=== PATIENT | female | born 1970 | race Caucasian/White ===

== ENCOUNTER 2018-01-26 14:22 | Inpatient (IN) | payer OTHER ==
[~2018-01-26] VITALS: Ht 154.9 cm; Wt 86.7 kg
--- NOTE | ~2018-01-26 | OP ---
[address] [address] OPERATIVE REPORT Name: JAMAICA WITT Room: [address] [place] .R.#: [id number] Admission: 01/26/18 Attend Phys: Nic Pierre MD Discharge: Date of : 74 Report #: [id number] THIS REPORT FOR: //name// CC: Nic Gatica DATE OF SERVICE: 01/27/2018 SURGEON: Tye Brown MD PREOPERATIVE DIAGNOSIS: Right ureteral stone and right kidney stone. POSTOPERATIVE DIAGNOSIS: Right ureteral stone and right kidney stone. PROCEDURE: Panendoscopy and cystoscopy, right retrograde pyelogram, laser ureteroscopy of distal right ureteral stone and flexible ureteroscopy with laser of kidney stone and double-J stent placement. COMPLICATIONS: No complications. INDICATIONS: This is a white female with history of severe pain. She has a 6 mm distal right ureteral stone. Also, has a 6 mm upper kidney stone. She understands risks of bleeding, infection and other procedures, cardiovascular and pulmonary complications and wished to proceed. DESCRIPTION OF PROCEDURE: Informed consent was obtained. The patient was sterilely prepped and draped in dorsal lithotomy position and given preoperative antibiotics, cystoscopy was carried out. No abnormalities seen in the bladder. Retrograde pyelogram showed filling defect in distal ureter. Sensor wire was used as a safety wire. Ureteroscopy was carried out with the rigid ureteroscope. Stone was seen broken with a laser and all the pieces were extracted. Next, a ZIPwire was placed as a safety wire. Ureteral access sheath was placed up easily 11 x 13 ureteral access sheath up to just below the UPJ. I was able to get the flexible ureteroscope up into the upper pole of the kidney. Kidney stone was seen broken into multiple small pieces and the vast majority were all taken out using a 0 tip nitinol basket. There were still some dust-like particles left up in the kidney. A 4.8 x 26 stent was then placed showing good curl in the kidney and good curl in the bladder. Plan will be for the patient to follow up with Dr. Brown in 1 week and the stent will be removed in the office. By: [id number] Brown MD /darek
[~2018-01-26 14:22] MED LIST: ADDERALL; ADDERALL 10 MG10 MG PO; AMBIEN; CELEXA; CELEXA10 MG PO; CLEOCIN HCL150 MG PO; DEPAKOTE; HYDROCODONE-AP1 EAC6 PO; KEFLEX500 MG PO; LAMICTAL; LAMICTAL100 MG PO; LISINOPRIL20 MG; PROZAC 20 MG20 M1; TRAZODONE HCL100 MG PO
[2018-01-26 14:42] VITALS: BP 139/73
[2018-01-26] MEDS ORDERED: RIZATRIPTAN10 MG PO (14:46)
[2018-01-26 15:27] LABS: ABSOLUTE BASOPHILS 0.1 thou/uL (0.0-0.2); ABSOLUTE EOSINOPHILS 0.4 thou/uL (0.0-0.7); ABSOLUTE LYMPHOCYTES 3.2 thou/uL (0.8-5.3); ABSOLUTE MONOCYTES 0.7 thou/uL (0.0-1.2); ABSOLUTE NEUTROPHILS 8.2 thou/uL (1.6-8.1); EOSINOPHILS 2.8 %; HEMATOCRIT 39.8 % (37.0-47.0); LYMPHOCYTES 25.2 %; MCH 27.8 pg (26.0-34.0); MCHC 32.7 g/dL (28.0-37.0); MCV 84.9 fL (80.0-100.0); MONOCYTES 5.5 %; MPV 8.2 fl. (7.2-11.1); NUCLEATED RBCS 0 /100WBC; PLATELET COUNT* 232 thou/uL (150-400); POLYS 65.5 %; RBC 4.69 mil/uL (4.20-5.00); RDW-CV 14.1 % (10.5-14.5); WBC 12.5 thou/uL (4.0-11.0)
[2018-01-26 15:30] LABS: URINE BILIRUBIN NEGATIVE (Negative); URINE BLOOD 3+ (Negative); URINE CLARITY CLEAR; URINE COLOR YELLOW; URINE GLUCOSE-RANDOM NEGATIVE (Negative); URINE KETONES NEGATIVE (Negative); URINE LEUKOCYTES NEGATIVE (Negative); URINE NITRITE NEGATIVE (Negative); URINE PROTEIN TRACE (Negative); URINE SPECIFIC GRAVITY >= 1.030 (1.005-1.030); URINE UROBILINOGEN 0.2 E.U./dl (0.2-1.0)
[2018-01-26 15:35] LABS: AMP/METHAMP POSITIVE (Negative); BACTERIA 1-9 Few /HPF (None Seen); BARBITURATES Negative (Negative); BENZODIAZEPINES Negative (Negative); CASTS None Seen /LPF (None Seen); COCAINE Negative (Negative); METHADONE Negative (Negative); OPIATES Negative (Negative); PCP Negative (Negative); SQUAMOUS 0-3 Few /LPF (0-3); THC Negative (Negative); URINE WBC 6-15 Few /HPF (0-5)
[2018-01-26 15:36] LABS: CRYSTALS None Seen /LPF (None Seen)
[2018-01-26 15:37] LABS: CALCIUM 8.9 mg/dL (8.5-10.1); CREATININE 1.3 mg/dL (0.6-1.3)
[2018-01-26 15:41] LABS: ALBUMIN 3.7 g/dL (3.4-5.0); TOTAL BILIRUBIN 0.2 mg/dL (<0.1-1.0); TOTAL PROTEIN 7.3 g/dL (6.4-8.2)
[2018-01-26 18:15] VITALS: BP 126/89
[2018-01-26 18:16] VITALS: BP 139/73
--- NOTE | 2018-01-26 18:42 | NUR ---
PATIENT ADMITTED TO ROOM 308 FROM ER. ALERT AND ORIENTED X 4. RATING FLANK PAIN A 2/10. SPOKE WITH DR. OJEDA FROM UROLOGY, ORDERS RECEIVED. PATIENT UPDATED ON PLAN OF CARE, VERBALIZES UNDERSTANDING. UP WITH SBA. STRAIN ALL URINE. NPO AFTER MIDNIGHT. ORIENTED TO CALL LIGHT. CALL LIGHT WITHIN REACH, WILL CONTINUE TO MONITOR.
[2018-01-26 19:45] VITALS: BP 102/46
[2018-01-27 00:03] VITALS: BP 92/57
--- NOTE | 2018-01-27 03:59 | NUR ---
ASSUMED CARE AT START OF SHIFT PAIN GIVEN AT ONE, STRAINING URINE ORDERD, NO STONE NOTED AT THIS TIME, RESTED WELL THROUGHOUT HOURLY ROUNDS, WILL CONTINUE CURRENT PLAN OF CARE, AND WILL REPORT CHANGES.
[2018-01-27 05:04] LABS: HEMATOCRIT 35.7 % (37.0-47.0); HEMOGLOBIN 11.7 gm/dL (12.0-15.0); MCH 28.3 pg (26.0-34.0); MCHC 32.6 g/dL (28.0-37.0); MCV 86.7 fL (80.0-100.0); MPV 8.2 fl. (7.2-11.1); RBC 4.12 mil/uL (4.20-5.00); RDW-CV 14.2 % (10.5-14.5); WBC 9.3 thou/uL (4.0-11.0)
[2018-01-27 05:21] LABS: CALCIUM 8.2 mg/dL (8.5-10.1); CREATININE 1.1 mg/dL (0.6-1.3); POTASSIUM 4.1 mmol/L (3.5-5.1)
[2018-01-27 08:45] VITALS: BP 103/74
[2018-01-27 14:18] VITALS: BP 103/74
--- NOTE | 2018-01-27 15:24 | NUR ---
SW attempted to meet pt to complete initial assessment but pt was out of the room for surgery. Pt lives with . Unaware of any dc needs at this time. SW to continue to follow.
[2018-01-27 17:40] VITALS: BP 129/80
[2018-01-27] MEDS ORDERED: CIPRO250 M2 PO (17:46)
[2018-01-27] MEDS ORDERED: ED-SPAZ0.125 MG SUBLING (17:47)
[2018-01-27] MEDS ORDERED: NORCO 5-325 TA1 EACH PO (17:48)
[2018-01-27 17:49] VITALS: BP 103/74
--- NOTE | 2018-01-27 17:57 | NUR ---
PATIENT DOWN FOR CYSTO/LITHOTRIPSY/STENT PLACEMENT THIS AFTERNOON. PATIENT RETURNED TO ROOM AROUND 1740. OK PER DR. MONTESINOS AND DR. PARRY FROM UROLOGY TO DISCHARGE THIS EVENING. PATIENT STATED SHE DID NOT WANT TO GO HOME DR. RICK MONTANEZ NOTIFIED VIA YOU CALL MD TUBE BUFFER DOC AND PLACED PAGE TO DR. HILTON FROM UROLOGY, AWAITING CALL BACK. IV SL. NO COMPLAINTS OF PAIN AT THIS TIME. REG DIET ORDERED, PATIENT TOLERATING. VITALS STABLE.
[2018-01-27 21:30] VITALS: BP 128/72
[2018-01-28 05:00] LABS: CALCIUM 8.6 mg/dL (8.5-10.1); CREATININE 0.9 mg/dL (0.6-1.3); MAGNESIUM 2.1 mg/dL (1.8-2.4)
[2018-01-28 05:03] LABS: POTASSIUM 5.3 mmol/L (3.5-5.1)
--- NOTE | 2018-01-28 07:46 | NUR ---
PT STATES SHE SLEPT WELL OVERNIGHT. DENIES PAIN OTHER THAN SLIGHT BURNING WITH URINATION. TOLERATING REGULAR DIET WITHOUT DIFFICULTY. UP AD KARI IN ROOM. RAC SL. UP TO SHOWER THIS MORNING. PO CIPRO GIVEN. AM LABS. ANTICIPATING DISCHARGE HOME TODAY. ABLE TO USE CALL LITE AND MAKE NEEDS KNOWN.
[2018-01-28 08:00] VITALS: BP 140/77
--- NOTE | 2018-01-28 11:21 | NUR ---
PATIENT GIVEN DISCHARGE INSTRUCTIONS AND PRESCRIPTIONS AT THIS TIME. PATIENT'S IV REMOVED. PATIENT VERBALIZED UNDERSTANDING IN REGARDS TO NEW MEDICATIONS AND FOLLOW UP APPOINTMENTS. PATIENT AMBUALTED OFF NURSING UNIT WITH NURSING STAFF. PATIENT AMBULATED OFF NURSING UNIT WITH NURSING STAFF.
[2018-02-06 10:10] LABS: STONE CA OXALATE DIHYDRATE 63 % (()); STONE CA OXALATE MONOHYDRATE 30 % (()); STONE COLOR Tan (()); STONE COMMENT Note: (())
== END 2018-01-28 11:25 | disposition home or self-care (01) | DRG 660 ==
LOC: M.ERS 14:22 → M.TBA-ER 16:52 → M.3W 16:52
PROVIDERS: Nurse Practitioner Family; Urology; ADMIT Internal Medicine
PROC: BT1D1ZZ Fluoroscopy of Right Kidney, Ureter and Bladder using Low Osmolar Contrast (ICD-10-PCS; principal; 2018-01-27)
PROC: 0T738DZ Dilation of Right Kidney Pelvis with Intraluminal Device, Via Natural or Artificial Opening Endoscopic (ICD-10-PCS; principal; 2018-01-27)
PROC: 0TC68ZZ Extirpation of Matter from Right Ureter, Via Natural or Artificial Opening Endoscopic (ICD-10-PCS; principal; 2018-01-27)
DX: N13.6 Pyonephrosis (principal); R65.10 Systemic inflammatory response syndrome (SIRS) of non-infectious origin without acute organ dysfunction; N17.0 Acute kidney failure with tubular necrosis; F31.9 Bipolar disorder, unspecified; F98.8 Other specified behavioral and emotional disorders with onset usually occurring in childhood and adolescence; I10 Essential (primary) hypertension; G43.909 Migraine, unspecified, not intractable, without status migrainosus; Z79.899 Other long term (current) drug therapy; Z23 Encounter for immunization

== ENCOUNTER → 2021-02-06 | Outpatient (CLI) | payer OTHER ==
[~2021-02-06] MED LIST changes: +CIPRO250 M2 PO; +ED-SPAZ0.125 MG SUBLING; +NORCO 5-325 TA1 EACH PO; +RIZATRIPTAN10 MG PO
== END ==
LOC: M.RAD 01-28 14:19
PROVIDERS: ATTEND Internal Medicine
DX: M79.89 Other specified soft tissue disorders (principal); N64.89 Other specified disorders of breast